=== PATIENT | female | born 1990 | race Caucasian/White ===

== ENCOUNTER 2017-07-08 08:32 | Emergency (ER) | payer MEDICAID ==
[2017-07-08 08:45] VITALS: O2SAT 96
--- NOTE | 2017-07-08 08:52 | EDPHY ---
H & P Stated Complaint: Noticed lump on post scalp this am;no injury Time Seen by Provider: 07/08/17 08:50 HPI/ROS: HPI: This is a 27-year-old female who presents with Chief Complaint: Noticed lump on post scalp this am;no injury Location: Right lower posterior scalp Quality: Lump Duration: 1-3 hours prior to arrival Signs and Symptoms: no fever, no nausea, no vomiting, no photophobia, no noise sensitivity, no neck stiffness, no ear pain, no tinnitus, no nasal congestion, no sinus pressure, no weakness, no radiation, no aura, no neck pain, no swollen glands Timing: Unknown Severity: Mild Context: Patient reports that she was feeling in her normal state of health yesterday, went to bed and noticed when she woke up this morning approximately 1 -3 hours prior to arrival a fullness at her posterior scalp on the right side. She denies any trauma. She does not believe that she has an ingrown hair. She reports that she feels healthy and denies any fever, sore throat, ear pain, upper respiratory symptoms. Patient reports that she is under lot of stress at work but denies any radiculopathy, weakness, numbness in her upper extremities. Patient did report that she started to feel dizzy as she was afraid that she may have a brain tumor. Patient has not tried any [id number] medications. Patient took a lift from work today to the emergency room for further evaluation. Modifying Factors: None Comment: ROS: see HPI Constitutional: No fever, no chills, no weight loss Eyes: No blurred vision Respiratory: No shortness of breath, no cough Cardiovascular: No chest pain, no palpitations Gastrointestinal: No nausea, no vomiting, no diarrhea, no hematemesis, no blood in stool Genitourinary: No dysuria, no blood in urine Extremities: No myalgias, no edema Neurologic: No weakness, no numbness Skin: No rashes, no petechiae Hematologic: No bruising, no bleeding MEDICAL/SURGICAL/SOCIAL HISTORY: Medical history: psoriasis, psoriatic arthritis, thyroid, depression/anxiety, obesity Surgical history: Denies Social history: Employed. CONSTITUTIONAL: Obese, extremely well-appearing, young adult female, awake and alert, no obvious distress HEENT: Atraumatic and normocephalic, PERRL, EOMI. Tympanic membranes clear. Oropharynx clear, no exudate and moist pink mucosa. Airway patent. No lymphadenopathy. No meningismus. Cardiovascular: Normal S1/S2, regular rate, regular rhythm, without murmur rub or gallop. PULMONARY/CHEST: Symmetrical and nontender. Clear to auscultation bilaterally. Good air movement. No accessory muscle usage. ABDOMEN: Soft, nondistended, nontender, no rebound, no guarding, no peritoneal signs, no masses or organomegaly. No CVAT. EXTREMITIES: 2/2 pulses, strength 5/5, no deformities, no clubbing, no cyanosis or edema. NEUROLOGICAL: no focal neuro deficits. GCS 15. SKIN: Warm and dry, mild prominence and fullness at the posterior scalp but no erythema/fluctuance/induration noted. no erythema. no rash. Good capillary refill. Source: Patient Exam Limitations: No limitations - Personal History LMP (Females 10-55): 22-28 Days Ago Current Tetanus Diphtheria and Acellular Pertussis (TDAP): Yes - Medical/Surgical History Other PMH: psoriasis. psoriatic arthritis. thyroid. depression/anxiety. obesity - Social History Smoking Status: Never smoked Constitutional: Initial Vital Signs Temperature (C) 36.7 C 07/08/17 08:40 Heart Rate 65 07/08/17 08:40 Respiratory Rate 18 07/08/17 08:40 Blood Pressure 153/87 H 07/08/17 08:40 O2 Sat (%) 96 07/08/17 08:40 O2 Delivery Mode Room Air Allergies/Adverse Reactions: meclizine Allergy (Mild, Verified 07/08/17 08:40) BP goes up morphine Allergy (Mild, Verified 07/08/17 08:40) n/v Penicillins Allergy (Mild, Verified 07/08/17 08:40) Rash Sulfa (Sulfonamide Antibiotics) Allergy (Mild, Verified 07/08/17 08:40) BP problem Home Medications: Medication Instructions Recorded ARIPiprazole [Abilify 5 mg (*)] 5 mg PO DAILY 07/08/17 Cephalexin [Keflex (*)] 500 mg PO TID #21 cap 07/08/17 Novaring 07/08/17 Sertraline HCl [Zoloft 25mg (*)] 25 mg PO DAILY 07/08/17 Medical Decision Making ED Course/Re-evaluation: Long discussion with patient reports that she has establish care with primary care. Patient's vital signs are stable and has no fever. Decision was to treat for early signs of superficial infection. Penicillin allergy but able to tolerate cephalosporins. Prescription for Keflex given. This patient was seen under the supervision of my secondary supervising physician. I evaluated care for this patient independently. Differential Diagnosis: Differential diagnosis includes but is not limited to lymphadenitis, cellulitis , folliculitis, soft tissue mass, scalp lesion, musculoskeletal, cervical spasm. Departure - Departure Disposition: Home, Routine, Self-Care Clinical Impression: Superficial swelling of scalp Condition: Good Instructions: Adenitis (ED), Folliculitis (ED) Additional Instructions: Take Tylenol 650 mg every 4 hours and/or Ibuprofen 600 mg every 8 hours with food as needed for pain. Apply moist heat for 30 minutes at a time; 2-3 times per day for the next 1-2 days. Take all of your antibiotics until fully complete. If symptoms have not improved by Wednesday, follow up with your primary care provider for further evaluation. Referrals: [facility] [Other] - 3-4 days, if not improved Stand Alone Forms: Work Excuse Prescriptions: Cephalexin [Keflex (*)] 500 mg PO TID #21 cap
[2017-07-08 09:41] VITALS: BP 138/69; PULSE 85; RESP 16; TEMP 98.4
== END 2017-07-08 09:38 | disposition home or self-care (01) ==
DX: R22.0 Localized swelling, mass and lump, head (principal)

== ENCOUNTER 2017-08-13 12:44 | Emergency (ER) | payer MEDICAID ==
[2017-08-13 12:53] VITALS: BP 132/90
--- NOTE | 2017-08-13 12:55 | EDPHY ---
H & P Stated Complaint: rash s/p tattoo Time Seen by Provider: 08/13/17 12:55 - Personal History LMP (Females 10-55): Now Current Tetanus/Diphtheria Vaccine: Yes Current Tetanus Diphtheria and Acellular Pertussis (TDAP): Yes - Medical/Surgical History Hx Asthma: No Hx Chronic Respiratory Disease: No Hx Diabetes: No Hx Cardiac Disease: No Hx Renal Disease: No Hx Cirrhosis: No Hx Alcoholism: No Hx HIV/AIDS: No Hx Splenectomy or Spleen Trauma: No Other PMH: psoriasis. psoriatic arthritis. thyroid. depression/anxiety. obesity - Social History Smoking Status: Never smoked Constitutional: Initial Vital Signs Temperature (C) 37.1 C 08/13/17 12:49 Heart Rate 95 08/13/17 12:49 Respiratory Rate 16 08/13/17 12:49 Blood Pressure 132/90 H 08/13/17 12:49 O2 Sat (%) 89 L 08/13/17 12:49 O2 Delivery Mode Room Air Allergies/Adverse Reactions: meclizine Allergy (Mild, Verified 08/13/17 12:47) BP goes up morphine Allergy (Mild, Verified 08/13/17 12:47) n/v Penicillins Allergy (Mild, Verified 08/13/17 12:47) Rash Sulfa (Sulfonamide Antibiotics) Allergy (Mild, Verified 08/13/17 12:47) BP problem Home Medications: Medication Instructions Recorded ARIPiprazole [Abilify 5 mg (*)] 5 mg PO DAILY 07/08/17 Novaring 07/08/17 Sertraline HCl [Zoloft 25mg (*)] 25 mg PO DAILY 07/08/17 Cephalexin [Keflex (RX)] 500 mg PO TID #30 cap 08/13/17 Epipen Kit 08/13/17 Synthroid 08/13/17 Medical Decision Making ED Course/Re-evaluation: CHIEF COMPLAINT: Right ankle rash s/p tattoo HISTORY OF PRESENT ILLNESS: The patient is a 27 y/o female with a history of psoriasis complaining of right inner ankle redness and rash s/p dinosaur tattoo 8 days ago. She initially had a bandage over the tattoo for the first 2 hours as directed by the bomb loader who she has seen before. The tattoo was healing normally, but then it began to itch. Yesterday, she noticed that the area surrounding the tattoo was red and inflamed, which concerned her. She is on immunotherapy for psoriasis which flares up when she gets her shots, which she received 2 days ago. Denies fever, chest pain, shortness of breath, numbness, paresthesias. REVIEW OF SYSTEMS: A 10 point review of systems was performed and is negative with the exception of the elements mentioned in the history of present illness. PHYSICAL EXAM: HR, BP, O2 Sat, RR. Temp noted General Appearance: Alert, well hydrated, appropriate, and non-toxic appearing. Head: Atraumatic without scalp tenderness or obvious injury Eyes: Pupils equal, round, reactive to light and accommodation, EOMI, no trauma , no injection. Ears: Clear bilaterally, no perforation, normal landmarks Nose: Atraumatic, no rhinorrhea, clear. Throat: Mucus membranes moist. Neck: Supple, nontender, no lymphadenopathy. Respiratory: No retractions, no distress, no wheezes, and no accessory muscle use. Lungs are clear to auscultation bilaterally. Cardiovascular: Regular rate and rhythm, no murmurs, rubs, or gallops. Good capillary refill all extremities. Gastrointestinal: Abdomen is soft, nontender, non-distended, no masses, no rebound, no guarding, no peritoneal signs. Musculoskeletal: Normal active ROM of all extremities, atraumatic. Neurological: Alert, appropriate, and interactive. Non-focal neuro. Skin: Follicular type rash surrounding dinosaur tattoo, good turgor, no nodules on palpation. Past medical history: Psoriasis, depression/anxiety, obesity Past surgical history: Denies Family history: Denies Social history: Lives in [place], , not employed DIFFERENTIAL DIAGNOSIS: The differential diagnosis included but was not limited to follicular rash, angioedema, urticarial reaction, and other infectious causes for skin rash. MEDICAL DECISION MAKING: The patient is a 27 y/o female with a history of psoriasis presenting with right inner ankle redness, itching, and a rash s/p dinosaur tattoo, 8 days ago. On exam, the rash appears to be follicular in nature and does not present like a MRSA rash. Reassessed patient, I have placed her on Keflex for the rash. I have also advised her to apply bacitracin to the area. Return precautions provided; patient is comfortable with this plan. Departure - Departure Disposition: Home, Routine, Self-Care Clinical Impression: Rash, Folliculitis Condition: Good Instructions: Acute Rash (ED) Additional Instructions: 1. Take Keflex as prescribed. 2. Apply Bacitracin to the area as directed. 3. Return to the Emergency Department for shortness of breath, difficulty swallowing, difficulty breathing, worsening of rash, fever or other worsening of condition. Referrals: [facility] [Other] - As per Instructions Prescriptions: Cephalexin [Keflex (RX)] 500 mg PO TID #30 cap Report Scribed for: Adrian Mayers Report Scribed by: Silvia Pardo Date of Report: 08/13/17 Time of Report: 12:56
== END 2017-08-13 13:04 | disposition home or self-care (01) ==
DX: R21 Rash and other nonspecific skin eruption (principal); L73.9 Follicular disorder, unspecified